=== PATIENT | male | born 1965 | race Two or more races ===

== ENCOUNTER 2023-06-09 05:23 | Day surgery (SDC) | payer OTHER ==
[2023-06-09] MEDS ORDERED: DIPHENHYDRAMINE HCL 50 MG/ML VIAL 1ML IV ONE (10:15)
[2023-06-09] MEDS ORDERED: fentaNYL CITRATE 50 MCG/ML AMPUL IV PUSH ONE (10:15)
[2023-06-09] MEDS ORDERED: MIDAZOLAM HCL 2 MG/2 ML VIAL IV ONE (10:15)
== END 2023-06-09 11:40 | disposition home or self-care (01) ==
LOC: AMB-ENDOS 05:23
PROVIDERS: ATTEND Colon & Rectal Surgery
DX: K29.71 Gastritis, unspecified, with bleeding (principal); K44.9 Diaphragmatic hernia without obstruction or gangrene